=== PATIENT | female | born 1970 | race African-American/Black ===

== ENCOUNTER → 2018-12-06 | Day surgery (SDC) | payer OTHER | LOC: JRADIR 13:01 | PROVIDERS: ATTEND Obstetrics & Gynecology | CPT/HCPCS: G0463 ==

== ENCOUNTER 2018-12-27 15:50 | Day surgery (SDC) | payer OTHER ==
[2018-12-24 18:58] VITALS: BMI 27.4
[2018-12-27 09:37] LABS: HEMATOCRIT 21.6 % (32.4-45.2); MCHC 29.2 g/dl (32.0-36.0); MEAN CELL VOLUME 54.7 fl (80-96); MEAN PLT VOLUME 8.3 fl (7.5-11.1); PLATELET COUNT 461 K/MM3 (134-434); RBC 3.94 M/mm3 (3.60-5.2); RDW 21.5 % (11.6-15.6); WHITE BLOOD COUNT 4.7 K/mm3 (4.0-10.0)
[2018-12-27 09:48] LABS: INR 1.04 (0.83-1.09); MCH 15.9 pg (25.7-33.7); PROTHROMBIN TIME (PATIENT) 12.3 SEC (9.7-13.0)
[2018-12-27 09:50] LABS: HEMOGLOBIN 6.3 GM/dL (10.7-15.3)
[2018-12-27 10:07] LABS: ALBUMIN 3.9 g/dl (3.4-5.0); BILIRUBIN,TOTAL 1.5 mg/dL (0.2-1); BLOOD UREA NITROGEN 9.3 mg/dL (7-18); CREATININE 0.8 mg/dL (0.55-1.3); POTASSIUM 4.2 mmol/L (3.5-5.1); TOT PROT 7.4 g/dl (6.4-8.2)
[2018-12-27 12:27] LABS: ANISOCYTOSIS 2+; MACROCYTOSIS 0; PLATELET ESTIMATE NORMAL
[2018-12-27] MEDS: ONDANSETRON 4 MG/2 ML VIAL IVPUSH PRN (15:30)
[~2018-12-27 15:50] MED LIST: HYDROmorphone *PCA* 10MG/50ML DISP.SYRIN ONE; HYDROmorphone *PCA* 10MG/50ML DISP.SYRIN PCA SCH; HYDROmorphone HCl 2 MG/ML VIAL IVPUSH ONE; KETOROLAC TROMETHAMINE 15 MG/ML VIAL IM ONE; ONDANSETRON 4 MG/2 ML VIAL ONE; SODIUM CHLORIDE 500 ML IV SCH
[2018-12-27] MEDS ORDERED: ACETAMINOPHEN 325 MG TABLET (FP) PO ONE (18:38)
--- NOTE | 2018-12-27 19:30 | PN ---
Teaching Attending Note Name of Resident: Loren Dinh ATTENDING PHYSICIAN STATEMENT I saw and evaluated the patient. I reviewed the resident's note and discussed the case with the resident. I agree with the resident's findings and plan as documented. SUBJECTIVE: Patient is a 48 year old woman with PMH of GERD, Mild Asthma, Severe Low MCV Anemia and Uterine fibroids with heavy menstrual blood loss for 15 years being admitted for observation after uterine fibroid embolization. Has had cramping pain in both calfs for a while. Denies chest pain, SOB, fever, chills, dysuria, hematuria or diarrhea. Patient is having moderate lower abdominal pain and is using dilaudid via the BILLING ADMINISTRATOR pump. Patient is a nonsmoker and denies alcohol abuse or use of any illicit drugs. No FH of anemia or blood disorder. LMP was last week. OBJECTIVE: Alert Vital Signs Period Temp Pulse Resp BP Sys/Rinaldi Pulse Ox Last 24 Hr 97.8 F-98.5 F 66-90 14-100 134-152/67-87 98-100 HEENT: No Jaundice, conjunctival pallor: eye redness or discharge, PERRLA, EOMI. Normocephalic, atraumatic. External ears are normal and hearing is grossly intact. No nasal discharge. Neck: Supple, nontender. No palpable adenopathy or thyromegaly. No JVD Chest: Good effort. Clear to auscultation and percussion. Heart: Regular. No S3, rub or murmur Abdomen: Not distended, soft, lower abdominal tenderness and no HSM. No rebound or guarding. Normal bowel sounds. Ext: Peripheral pulses intact. No leg edema. Skin: Warm and dry. No petechiae, rash or ecchymosis. Neuro: Alert. Oriented x3. CN 2-12 grossly intact. Sensation grossly intact in all four extremities and DTR are symmetric. Psych: Appropriate mood and affect. Good insight. Current Medications Generic Name Dose Route Start Last Admin Trade Name Freq PRN Reason Stop Dose Admin Diphenhydramine HCl 12.5 mg 12/27/18 15:04 Benadryl Injection - IVPUSH Q4H PRN NAUSEA/VOMITING Hydromorphone HCl 10 mg 12/27/18 13:45 12/27/18 13:55 Hydromorphone 10 Mg/50 Ml-Ns BILLING ADMINISTRATOR 10 mg BILLING ADMINISTRATOR DOMENICA Administration Protocol Sodium Chloride 500 mls @ 21 mls/hr 12/27/18 13:45 Normal Saline - IV ASDIR DOMENICA Ondansetron HCl 4 mg 12/27/18 14:28 12/27/18 15:30 Zofran Injection IVPUSH 4 mg Q4H PRN Administration NAUSEA AND/OR VOMITING Home Medications Medication Instructions Recorded NK [No Known Home Medication] 03/13/14 Abnormal Lab Results 12/27/18 12/27/18 09:20 09:20 Hgb 6.3 L* Hct 21.6 L MCV 54.7 L MCH 15.9 L MCHC 29.2 L RDW 21.5 H Plt Count 461 H Anion Gap 5 L Total Bilirubin 1.5 H AST 12 L ASSESSMENT AND PLAN: 1. Postop Uterine Fibroid Embolization/Day 0 - Continue pain control with dilaudid. Get EKG, leg doppler, Mg+ and phosphate levels. Monitor BP closely since she may have undiagnosed hypertension. Patient counseled to have BP checked with PCP upon discharge. 2. Low MCV Anemia - Likely due to excess menstrual blood loss caused by fibroids. Will get iron studies, transfuse 1 unit PRBC today and give IV Venofer 500 mg x 2 doses tomorrow. Counseled that she may require more IV iron post discharge. 3. DVT prophylaxis - Lovenox 40 mg SQ q 24 hours. 4. Advance directives - Full code.
--- NOTE | 2018-12-27 21:02 | HP ---
CHIEF COMPLAINT: uterine fibroids s/p embolization PCP: HISTORY OF PRESENT ILLNESS: 48 y.o F PMH anemia, GERD, asthma presenting for elective uterine artery embolization for fibroids w/ Dr. Mendiola post-op day#0 admitted to medicine for post op care. Patient endorses a 15 year history of irregular menstrual bleeding with menorrhagia and bleeding between menstruation. For the past 5-6 days she has been having increasingly heavy vaginal bleeding using about 15 pads per day (not fully saturating each pad). Pt says she has noticed large clots passing vaginally as well with severe suprapubic cramping. As per her obgyn recommendations she elected to have uterine artery embolization in hopes of relieving her symptoms. Uterine a. embolization performed w/ no complications. Patient admitted to med surg for post op observation. Lying in bed comfortably, using WRECKER DRIVER pump w/ dilaudid for pain control. Pt endorsing diffuse lower abdominal pain with minimal vaginal bleeding. Pt remains afebrile. On ROS pt endorses R sided calf tenderness on exam; denies CP/ SOB/ OBANDO/ N/V/D. 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 Lives w/ Smoking: never smoked Alcohol: denies Drugs: denies Allergies No Known Allergies Allergy (Verified 12/27/18 10:24) HOME MEDICATIONS: Home Medications Medication Instructions Recorded NK [No Known Home Medication] 03/13/14 REVIEW OF SYSTEMS CONSTITUTIONAL: Absent: fever, chills, diaphoresis, generalized weakness, malaise, loss of appetite, weight change HEENT: Absent: rhinorrhea, nasal congestion, throat pain, throat swelling, difficulty swallowing, mouth swelling, ear pain, eye pain, visual changes CARDIOVASCULAR: Absent: chest pain, syncope, palpitations, irregular heart rate, lightheadedness , peripheral edema RESPIRATORY: Absent: cough, shortness of breath, dyspnea with exertion, orthopnea, wheezing, stridor, hemoptysis GASTROINTESTINAL: Absent: abdominal pain, abdominal distension, nausea, vomiting, diarrhea, constipation, melena, hematochezia GENITOURINARY: Absent: dysuria, frequency, urgency, hesitancy, hematuria, flank pain, genital pain MUSCULOSKELETAL: Absent: myalgia, arthralgia, joint swelling, back pain, neck pain SKIN: Absent: rash, itching, pallor HEMATOLOGIC/IMMUNOLOGIC: Absent: easy bleeding, easy bruising, lymphadenopathy, frequent infections ENDOCRINE: Absent: unexplained weight gain, unexplained weight loss, heat intolerance, cold intolerance NEUROLOGIC: Absent: headache, focal weakness or paresthesias, dizziness, unsteady gait, seizure, mental status changes, bladder or bowel incontinence PSYCHIATRIC: Absent: anxiety, depression, suicidal or homicidal ideation, hallucinations. PHYSICAL EXAMINATION Vital Signs - 24 hr 12/27/18 12/27/18 12/27/18 10:19 10:23 11:43 Temperature 98.3 F Pulse Rate 86 79 Pulse Rate [ Right Lower Arm ] Respiratory 20 14 Rate Respiratory Rate [Right Lower Arm] Blood Pressure 137/81 149/79 Blood Pressure [Right Lower Arm] O2 Sat by Pulse 100 100 Oximetry (%) O2 Sat by Pulse Oximetry (%) [ Right Lower Arm ] 12/27/18 12/27/18 12/27/18 12:10 12:20 12:30 Temperature Pulse Rate Pulse Rate [ 90 81 79 Right Lower Arm ] Respiratory Rate Respiratory 14 14 14 Rate [Right Lower Arm] Blood Pressure Blood Pressure 151/78 152/81 145/78 [Right Lower Arm] O2 Sat by Pulse Oximetry (%) O2 Sat by Pulse 100 100 100 Oximetry (%) [ Right Lower Arm ] 12/27/18 12/27/18 12/27/18 12:40 12:50 13:00 Temperature Pulse Rate Pulse Rate [ 80 87 76 Right Lower Arm ] Respiratory Rate Respiratory 14 100 H 14 Rate [Right Lower Arm] Blood Pressure Blood Pressure 145/78 143/79 138/77 [Right Lower Arm] O2 Sat by Pulse Oximetry (%) O2 Sat by Pulse 100 100 100 Oximetry (%) [ Right Lower Arm ] 12/27/18 12/27/18 12/27/18 13:10 13:21 13:30 Temperature 98.5 F Pulse Rate 79 77 Pulse Rate [ 74 Right Lower Arm ] Respiratory 16 17 Rate Respiratory 14 Rate [Right Lower Arm] Blood Pressure 148/84 137/85 Blood Pressure 134/67 [Right Lower Arm] O2 Sat by Pulse 100 100 Oximetry (%) O2 Sat by Pulse 100 Oximetry (%) [ Right Lower Arm ] 12/27/18 12/27/18 12/27/18 13:45 13:55 14:00 Temperature Pulse Rate 69 69 69 Pulse Rate [ Right Lower Arm ] Respiratory 16 14 18 Rate Respiratory Rate [Right Lower Arm] Blood Pressure 141/77 141/77 135/86 Blood Pressure [Right Lower Arm] O2 Sat by Pulse 100 100 100 Oximetry (%) O2 Sat by Pulse Oximetry (%) [ Right Lower Arm ] 12/27/18 12/27/18 12/27/18 14:15 14:25 14:30 Temperature Pulse Rate 73 73 73 Pulse Rate [ Right Lower Arm ] Respiratory 16 14 14 Rate Respiratory Rate [Right Lower Arm] Blood Pressure 140/86 137/80 137/80 Blood Pressure [Right Lower Arm] O2 Sat by Pulse 100 100 100 Oximetry (%) O2 Sat by Pulse Oximetry (%) [ Right Lower Arm ] 12/27/18 12/27/18 12/27/18 14:45 15:00 15:15 Temperature Pulse Rate 74 73 72 Pulse Rate [ Right Lower Arm ] Respiratory 16 16 14 Rate Respiratory Rate [Right Lower Arm] Blood Pressure 141/80 136/83 149/78 Blood Pressure [Right Lower Arm] O2 Sat by Pulse 100 100 100 Oximetry (%) O2 Sat by Pulse Oximetry (%) [ Right Lower Arm ] 12/27/18 12/27/18 12/27/18 15:30 15:45 15:55 Temperature Pulse Rate 72 72 66 Pulse Rate [ Right Lower Arm ] Respiratory 14 14 18 Rate Respiratory Rate [Right Lower Arm] Blood Pressure 149/78 149/78 146/83 Blood Pressure [Right Lower Arm] O2 Sat by Pulse 100 100 98 Oximetry (%) O2 Sat by Pulse Oximetry (%) [ Right Lower Arm ] 12/27/18 12/27/18 12/27/18 15:56 15:57 16:03 Temperature 98.5 F 97.8 F Pulse Rate 76 76 66 Pulse Rate [ Right Lower Arm ] Respiratory 16 14 18 Rate Respiratory Rate [Right Lower Arm] Blood Pressure 146/87 146/87 146/83 Blood Pressure [Right Lower Arm] O2 Sat by Pulse 100 100 99 Oximetry (%) O2 Sat by Pulse Oximetry (%) [ Right Lower Arm ] 12/27/18 12/27/18 16:05 19:12 Temperature 97.8 F Pulse Rate 66 Pulse Rate [ Right Lower Arm ] Respiratory 18 18 Rate Respiratory Rate [Right Lower Arm] Blood Pressure 146/83 Blood Pressure [Right Lower Arm] O2 Sat by Pulse 100 Oximetry (%) O2 Sat by Pulse Oximetry (%) [ Right Lower Arm ] GENERAL: Awake, alert, and fully oriented, in mild distress d/t pain HEENT: NCAT. MMM. LUNGS: CTABL no incr work of breathing HEART: RRR S2S2 heard. No murmurs. ABDOMEN: Diffusely tender to palpation across lower abdomen. Embolization entry site C/D/I no signs of infection. Soft, not distended, normoactive bowel sounds , no guarding. UPPER EXTREMITIES: 2+ pulses, warm, well-perfused. No cyanosis. No clubbing. No peripheral edema. LOWER EXTREMITIES: + calf tenderness RLE; Homans +. 2+ pulses, warm, well- perfused. No peripheral edema. : Nogueira in place PSYCHIATRIC: Cooperative. Good eye contact. Appropriate mood and affect. Laboratory Results - last 24 hr 12/27/18 12/27/18 12/27/18 09:20 09:20 09:20 WBC 4.7 RBC 3.94 Hgb 6.3 L* Hct 21.6 L MCV 54.7 L MCH 15.9 L MCHC 29.2 L RDW 21.5 H Plt Count 461 H MPV 8.3 Absolute Neuts (auto) Neutrophils % Station Mechanic Helper Neutrophils % (Manual) 69.4 Band Neutrophils % 0.0 Lymphocytes % Station Mechanic Helper Lymphocytes % (Manual) 21.4 Monocytes % Station Mechanic Helper Monocytes % (Manual) 6 Eosinophils % Station Mechanic Helper Eosinophils % (Manual) 2.1 Basophils % Station Mechanic Helper Basophils % (Manual) 1.0 Myelocytes % (Man) 0 Promyelocytes % (Man) 0 Blast Cells % (Manual) 0 Nucleated RBC % 0 Metamyelocytes 0 Hypochromia 2+ Platelet Estimate Normal Polychromasia 1+ Poikilocytosis 1+ Anisocytosis 2+ Microcytosis 2+ Macrocytosis 0 Spherocytes 1+ PT with INR 12.30 INR 1.04 Sodium Potassium Chloride Carbon Dioxide Anion Gap BUN Creatinine Est GFR (CKD-EPI)AfAm Est GFR (CKD-EPI)NonAf Random Glucose Calcium Total Bilirubin AST ALT Alkaline Phosphatase Total Protein Albumin Urine HCG, Qual Negative 12/27/18 09:20 WBC RBC Hgb Hct MCV MCH MCHC RDW Plt Count MPV Absolute Neuts (auto) Neutrophils % Neutrophils % (Manual) Band Neutrophils % Lymphocytes % Lymphocytes % (Manual) Monocytes % Monocytes % (Manual) Eosinophils % Eosinophils % (Manual) Basophils % Basophils % (Manual) Myelocytes % (Man) Promyelocytes % (Man) Blast Cells % (Manual) Nucleated RBC % Metamyelocytes Hypochromia Platelet Estimate Polychromasia Poikilocytosis Anisocytosis Microcytosis Macrocytosis Spherocytes PT with INR INR Sodium 137 Potassium 4.2 Chloride 104 Carbon Dioxide 28 Anion Gap 5 L BUN 9.3 Creatinine 0.8 Est GFR (CKD-EPI)AfAm 100.33 Est GFR (CKD-EPI)NonAf 86.57 Random Glucose 87 Calcium 9.0 Total Bilirubin 1.5 H AST 12 L ALT 14 Alkaline Phosphatase 45 Total Protein 7.4 Albumin 3.9 Urine HCG, Qual ASSESSMENT/PLAN: 48 y.o. F PMH anemia, GERD, asthma presenting from IR suite post-op day 0 s/p uterine artery embolization. #Uterine fibroids -POD#- s/p uterine artery embolization by Dr. Luna -WRECKER DRIVER pump in place; dilaudid -Afebrile, monitor vitals -Pulse checks q3h #Iron deficiency anemia -Hgb 6.3; previous study 2 weeks ago shows hgb 6.1 -F/u iron studies, ferritin, transferrin, retic count -Giving 1U pRBCs -Tomorrow give IV Venofer-- minimum 2 doses prior to discharge -Negative orthostatics: Supine 147/81 sitting 153/86 standing 149/74 #RLE calf tenderness -LE duplex neg for DVTs #HTN -Pt says she has had HTN in the past never sought medical treatment -F/u EKG #FEN -NS @21mL/hr -Monitor electrolytes -NPO now, regular diet 3 hrs post op #DVT PPX -early ambulation, SCDs -Starts LVX tomorrow Visit type - Emergency Visit Emergency Visit: Yes Care time: The patient presented to the Emergency Department on the above date and was hospitalized for further evaluation of their emergent condition. - New Patient This patient is new to me today: Yes Date on this admission: 12/28/18 - Critical Care Critical Care patient: No ATTENDING PHYSICIAN STATEMENT I saw and evaluated the patient. I reviewed the resident's note and discussed the case with the resident. I agree with the resident's findings and plan as documented. SUBJECTIVE: OBJECTIVE: ASSESSMENT AND PLAN:
[2018-12-27 22:15] LABS: MAGNESIUM 1.9 mg/dL (1.8-2.4); PHOSPHOROUS 3.5 mg/dL (2.5-4.9)
[2018-12-28 08:23] LABS: HEMATOCRIT 23.6 % (32.4-45.2); HEMOGLOBIN 7.1 GM/dL (10.7-15.3); MCHC 30.1 g/dl (32.0-36.0); MEAN CELL VOLUME 58.6 fl (80-96); MEAN PLT VOLUME 8.7 fl (7.5-11.1); PLATELET COUNT 410 K/MM3 (134-434); RBC 4.02 M/mm3 (3.60-5.2); RDW 22.4 % (11.6-15.6); WHITE BLOOD COUNT 9.3 K/mm3 (4.0-10.0)
[2018-12-28 08:25] LABS: MCH 17.7 pg (25.7-33.7)
[2018-12-28 08:47] LABS: ALBUMIN 3.3 g/dl (3.4-5.0); BILIRUBIN,TOTAL 2.9 mg/dL (0.2-1); BLOOD UREA NITROGEN 9.4 mg/dL (7-18); CALCIUM 8.6 mg/dL (8.5-10.1); CREATININE 0.7 mg/dL (0.55-1.3); PHOSPHOROUS 3.7 mg/dL (2.5-4.9); POTASSIUM 3.9 mmol/L (3.5-5.1); TOT PROT 6.3 g/dl (6.4-8.2)
[2018-12-28] MEDS ORDERED: IRON SUCROSE INJECTION 200 MG in SODIUM CHLORIDE 90 ML IVPB ONE ×2 (09:00→14:00)
[2018-12-28] MEDS: ONDANSETRON 4 MG/2 ML VIAL IVPUSH PRN (11:32)
--- NOTE | 2018-12-28 11:36 | EKG ---
Test Reason : Blood Pressure : / mmHG Vent. Rate : 078 BPM Atrial Rate : 078 BPM P-R Int : 160 ms QRS Dur : 074 ms QT Int : 388 ms P-R-T Axes : 073 032 034 degrees QTc Int : 442 ms NORMAL SINUS RHYTHM WITH SINUS ARRHYTHMIA NONSPECIFIC T WAVE ABNORMALITY ABNORMAL ECG NO PREVIOUS ECGS AVAILABLE Confirmed by Stewart Clemens MD ([id number]) on 12/28/2018 11:35:45 AM Referred By: Drew Nielsen Confirmed By:Stewart Clemens MD
[2018-12-28] MEDS ORDERED: ACETAMINOPHEN 325 MG TABLET (FP) PO PRN (12:21)
[2018-12-28] MEDS ORDERED: KETOROLAC TROMETHAMINE 10 MG TABLET PO PRN (12:22)
[2018-12-28 12:55] LABS: HEMATOCRIT 27.2 % (32.4-45.2); MCHC 29.6 g/dl (32.0-36.0); MEAN CELL VOLUME 59.2 fl (80-96); MEAN PLT VOLUME 8.8 fl (7.5-11.1); PLATELET COUNT 467 K/MM3 (134-434); RBC 4.59 M/mm3 (3.60-5.2); RDW 22.3 % (11.6-15.6); WHITE BLOOD COUNT 10.7 K/mm3 (4.0-10.0)
[2018-12-28 12:59] LABS: MCH 17.5 pg (25.7-33.7)
--- NOTE | 2018-12-28 13:26 | DS ---
Physical Exam: SUBJECTIVE: Patient seen and examined, had one episode of nausea with vomiting today after breakfast, so diluadid sales agent casualty insurance discontinued. felt better after. States she had only minimal amounts of sero sang bleeding on her pad, only changed pad once this morning. denies dizziness or shortness of breath. OBJECTIVE: per admission note: 48 y.o F PMH anemia, GERD, asthma presenting for elective uterine artery embolization for fibroids w/ Dr. Mendiola post-op day#0 admitted to medicine for post op care. Patient endorses a 15 year history of irregular menstrual bleeding with menorrhagia and bleeding between menstruation. For the past 5-6 days she has been having increasingly heavy vaginal bleeding using about 15 pads per day (not fully saturating each pad). Pt says she has noticed large clots passing vaginally as well with severe suprapubic cramping. As per her obgyn recommendations she elected to have uterine artery embolization in hopes of relieving her symptoms. Uterine a. embolization performed w/ no complications. Patient admitted to med surg for post op observation. Lying in bed comfortably, using FIRE CODE INSPECTOR pump w/ dilaudid for pain control. Pt endorsing diffuse lower abdominal pain with minimal vaginal bleeding. Pt remains afebrile. On ROS pt endorses R sided calf tenderness on exam; denies CP/ SOB/ OBANDO/ N/V/D. Patient cbc stablized after 1 unit of prbc, she will need close follow up with her pcp for repeat CBC imaging. She received one dose of venofer prior to d/c with PO iron therapy to initiate outpatient. will also need JUNIOR NETWORK ADMINISTRATOR follow up. Vital Signs Period Temp Pulse Resp BP Sys/Rinaldi Pulse Ox Last 24 Hr 97.7 F-99.0 F 66-88 14-20 135-153/74-97 98-100 PHYSICAL EXAM GENERAL: The patient is awake, alert, and fully oriented, in no acute distress. HEAD: Normal with no signs of trauma. EYES: PERRL, extraocular movements intact, sclera anicteric, conjunctiva clear. ENT: Ears normal, nares patent, oropharynx clear without exudates, moist mucous membranes. NECK: Trachea midline, full range of motion, supple. LUNGS: Breath sounds equal, clear to auscultation bilaterally, no wheezes, no crackles, no accessory muscle use. HEART: Regular rate and rhythm, ABDOMEN: Soft, nontender, nondistended, normoactive bowel sounds, no guarding, no rebound, no hepatosplenomegaly, no masses. EXTREMITIES: 2+ pulses, warm, well-perfused, no edema. NEUROLOGICAL: Normal speech, gait not observed. PSYCH: Normal mood, normal affect. SKIN: Warm, dry, normal turgor, no rashes or lesions noted. LABS Laboratory Results - last 24 hr 12/27/18 12/27/18 12/27/18 20:50 21:05 21:30 WBC RBC Hgb Hct MCV MCH MCHC RDW Plt Count MPV Neutrophils % Lymphocytes % Retic Count 2.11 H Sodium Potassium Chloride Carbon Dioxide Anion Gap BUN Creatinine Est GFR (CKD-EPI)AfAm Est GFR (CKD-EPI)NonAf Random Glucose Calcium Phosphorus 3.5 Magnesium 1.9 Iron 12 L TIBC 554 H Iron Saturation 2 L Unsaturated IBC 542 H Ferritin 1.5 L Total Bilirubin AST ALT Alkaline Phosphatase Total Protein Albumin Blood Type A POSITIVE Antibody Screen Negative Crossmatch See Detail 12/28/18 12/28/18 12/28/18 07:20 07:20 12:30 WBC 9.3 10.7 H RBC 4.02 4.59 Hgb 7.1 L 8.0 L Hct 23.6 L 27.2 L D MCV 58.6 L D 59.2 L MCH 17.7 L D 17.5 L MCHC 30.1 L 29.6 L RDW 22.4 H 22.3 H Plt Count 410 467 H MPV 8.7 8.8 Neutrophils % No Result Required. Lymphocytes % No Result Required. Retic Count Sodium 138 Potassium 3.9 Chloride 105 Carbon Dioxide 24 Anion Gap 8 BUN 9.4 Creatinine 0.7 Est GFR (CKD-EPI)AfAm 117.91 Est GFR (CKD-EPI)NonAf 101.74 Random Glucose 87 Calcium 8.6 Phosphorus 3.7 Magnesium 2.0 Iron TIBC Iron Saturation Unsaturated IBC Ferritin Total Bilirubin 2.9 H AST 14 L ALT 11 L Alkaline Phosphatase 43 L Total Protein 6.3 L Albumin 3.3 L Blood Type Antibody Screen Crossmatch HOSPITAL COURSE: Date of Admission:12/27/18 Date of Discharge: 12/28/18 Minutes to complete discharge: 60 Discharge Summary Problems reviewed: Yes Reason For Visit: UTERINE FIBROIDS Condition: Stable - Instructions Diet, Activity, Other Instructions: Please follow up with your primary care doctor for a repeat CBC within 1 week. You have received one unit of PRBC and IV iron. Start taking the Iron pills once daily. Disposition: HOME - Home Medications Comprehensive Discharge Medication List: Ambulatory Orders Ketorolac Tromethamine [Toradol -] 10 mg PO Q6HPO PRN #14 tablet 12/28/18 Problem List - Problems (1) Uterine fibroid Assessment/Plan: POD #1. pain managed with tylenol and toradol minimal bleeding today with only one pad with sero sang outpatient follow up with JUNIOR NETWORK ADMINISTRATOR Code(s): D25.9 - LEIOMYOMA OF UTERUS, UNSPECIFIED (2) Acute blood loss anemia Assessment/Plan: received 1 unit of prbc with low/acceptable hmg. will give one dose of venofer start iron therapy outpatient repeat CBC with pcp Code(s): D62 - ACUTE POSTHEMORRHAGIC ANEMIA This patient is new to me today: Yes Date on this admission: 12/28/18 Emergency Visit: Yes Care time: The patient presented to the Emergency Department on the above date and was hospitalized for further evaluation of their emergent condition. Critical Care patient: No - Discharge Referral Referred to [facility] No
[2018-12-28 14:21] LABS: ANISOCYTOSIS 3+; MACROCYTOSIS 0; PLATELET ESTIMATE NORMAL
[2018-12-28 15:00] VITALS: BP 155/77; PULSE 74; TEMP 97.7
[2018-12-29] MEDS ORDERED: FERROUS SO4 325 MG TABLET (FP) PO SCH (10:00)
== END 2018-12-28 17:15 | disposition home or self-care (01) ==
LOC: SUATTDRO 15:50 → J6S 15:50 → JASUSAT 15:50
PROVIDERS: ATTEND Nurse Practitioner Family
PROC: 04LE3DT Occlusion of Right Uterine Artery with Intraluminal Device, Percutaneous Approach (ICD-10-PCS; 2018-12-27)
PROC: 04LF3DU Occlusion of Left Uterine Artery with Intraluminal Device, Percutaneous Approach (ICD-10-PCS; principal; 2018-12-27 10:00)
DX: D25.9 Leiomyoma of uterus, unspecified (principal); D50.9 Iron deficiency anemia, unspecified
CPT/HCPCS: 36415; 36430; 37243; 76000-TC-FY; 77002-TC-FY; 80053; 82728; 83540; 83550; 83735; 84100; 84466; 84703; 85025; 85027; 85044; 85610; 86850; 86900; 86901; 86922; 93005; 93010; 93970-TC; 94760; 97116-GP; 97161-GP; C1760; C1769; C1887; C1894; J1756; P9038; P9058